=== PATIENT | female | born 1980 | race Two or more races ===

== ENCOUNTER 2017-05-28 08:10 | Emergency (ER) | payer OTHER ==
[~2017-05-28] VITALS: Ht 175.3 cm; Wt 115.7 kg
[~2017-05-28 08:10] MED LIST: MOTRIN800 MG PO; MUCINEX1200 MG PO; TUSSI PRES-B L120 M1 PO; ZITHROMAX TRI-500 MG PO; ZITHROMAX200 MG PO
[2017-05-28] MEDS ORDERED: ZITHROMAX TRI-500 MG PO (10:11)
== END 2017-05-28 10:16 | disposition home or self-care (01) ==
LOC: ER 08:10
DX: R50.9 Fever, unspecified (principal)

== ENCOUNTER 2022-01-20 08:19 | Emergency (ER) | payer OTHER ==
[~2022-01-20] VITALS: Ht 172.7 cm; Wt 81.6 kg
[2022-01-20] MEDS ORDERED: MYCO NAIL30 ML TOP (10:47)
[2022-01-20] MEDS ORDERED: FLUCONAZOLE150 MG PO (10:47)
[2022-01-20] MEDS ORDERED: KETO10TA2 PO (10:47)
== END 2022-01-20 11:35 | disposition home or self-care (01) ==
LOC: ER 08:19
DX: B35.1 Tinea unguium (principal)

== ENCOUNTER 2022-07-14 09:15 | Emergency (ER) | payer OTHER ==
[~2022-07-14] VITALS: Ht 167.6 cm; Wt 90.7 kg
[~2022-07-14 09:15] MED LIST changes: +FLUCONAZOLE150 MG PO; +KETO10TA2 PO; +MYCO NAIL30 ML TOP
== END 2022-07-14 13:52 | disposition home or self-care (01) ==
LOC: ER 09:15
DX: R05.9 Cough, unspecified (principal); Z20.822 Contact with and (suspected) exposure to COVID-19

== ENCOUNTER 2023-02-27 09:14 | Emergency (ER) | payer OTHER ==
[~2023-02-27] VITALS: Ht 175.3 cm; Wt 115.7 kg
[2023-02-27] MEDS ORDERED: RISPERDAL1 MG (09:24)
[2023-02-27] MEDS ORDERED: ATIVAN1 M1 PO (09:24)
[2023-02-27 10:20] LABS: HEMATOCRIT 36.8 % (36.0-45.00); HEMOGLOBIN 12.6 g/dL (12.0-15.00); MEAN CELL VOLUME 85.7 fL (80.00-100.00); MEAN CORPUSCULAR HEMOGLOBIN 29.2 pg (27.00-32.0); MEAN CORPUSCULAR HGB CONC 34.1 g/dl (32.0-36.0); PLATELET COUNT 253 K/uL (150-450); RED CELL DISTRIBUTION WIDTH 13.1 % (11.5-14.5)
== END 2023-02-27 11:18 | disposition home or self-care (01) ==
LOC: ER 09:14
PROVIDERS: General Practice
DX: B34.9 Viral infection, unspecified (principal); Z20.822 Contact with and (suspected) exposure to COVID-19

== ENCOUNTER → 2024-01-26 | Emergency (ER) | payer OTHER ==
[~2024-01-26] VITALS: Ht 175.3 cm; Wt 108.9 kg
[~2024-01-26] MED LIST changes: +ATIVAN1 M1 PO; +RISPERDAL1 MG
== END | disposition left against medical advice (07) ==
LOC: ER 16:42
DX: Z53.21 Procedure and treatment not carried out due to patient leaving prior to being seen by health care provider (principal)